=== PATIENT | male | born 1945 | race Caucasian/White ===

== ENCOUNTER 2017-09-14 19:55 | Inpatient (IN) | payer BC, OTHER ==
[~2017-09-14] VITALS: Ht 2956.6 cm; Wt 97.4 kg
[2017-09-14 20:56] LABS: HEMATOCRIT 37.6 % (38.0-50.0); HEMOGLOBIN 12.4 G/DL (12.5-16.6); MCH 30.1 PG (29.0-34.0); MCV 91.3 FL (86-99); PLATELET COUNT 287 K/uL (156-360); RBC DIS.WIDTH-CV 12.9 % (11.8-14.6); RBC DIS.WIDTH-SD 42.8 % (39-53); RED BLOOD COUNT 4.12 M/uL (4.00-5.50); WHITE BLOOD COUNT 8.9 K/uL (4.1-10.2)
[2017-09-14 21:04] LABS: CHLORIDE 105 mEq/L (99-109)
[2017-09-14 21:05] LABS: POTASSIUM 4.8 mEq/L (3.7-5.4); SODIUM 142 mEq/L (136-147)
[2017-09-14 21:06] LABS: GLUCOSE 119 mg/dL (70-99)
[2017-09-14 21:10] LABS: CREATININE 1.6 mg/dL (0.6-1.3); GFR ESTIMATE (CALCULATED) 45 mL/min/ (58.99-99999)
[2017-09-14 21:11] LABS: UREA NITROGEN (BUN) 24 mg/dL (9-23)
[2017-09-14 21:19] LABS: TROP-I INTERPRETATION NEGATIVE; TROPONIN-I < 0.01 ng/mL (0.0-0.30)
[2017-09-14] MEDS ORDERED: ADULT ASPIRIN R81 MG PO (21:24)
[2017-09-14] MEDS ORDERED: METFORMIN HCL1000 MG PO (21:24)
[2017-09-14] MEDS ORDERED: FLOMAX0.4 MG PO (21:24)
[2017-09-14] MEDS ORDERED: ACTOS30 MG PO (21:25)
[2017-09-14] MEDS ORDERED: LISINOPRIL10 MG PO (21:25)
[2017-09-14] MEDS ORDERED: SIMVASTATIN20 MG PO (21:25)
[2017-09-15 12:50] LABS: APPEARANCE CLEAR ((CLEAR)); BILIRUBIN NEGATIVE; BLOOD MODERATE; COLOR YELLOW ((YELLOW)); GLUCOSE (STRIP) NEGATIVE; KETONES NEGATIVE; LEUKOCYTES NEGATIVE; NITRITE NEGATIVE; PROTEIN (STRIP) NEGATIVE; SPECIFIC GRAVITY 1.017 (1.000-1.030); UROBILINOGEN 0.2 MG/DL (0.2-1.0)
[2017-09-15 12:54] LABS: BACTERIA NONE SEEN /HPF; EPITHELIAL CELLS RARE /HPF; HYALINE CASTS 0-5 /LPF; MUCUS TRACE /LPF; RED BLOOD CELLS 30-40 /HPF (0-5); UCUL ADDED? NO; WHITE BLOOD CELLS 0-5 /HPF (0-5)
[2017-09-15 19:50] VITALS: BP 125/60
[2017-09-15 23:27] VITALS: BP 130/60
[2017-09-16] VITALS (7 sets, daily range): BP systolic 123–169; BP diastolic 56–79
[2017-09-16 07:20] LABS: HEMATOCRIT 33.3 % (38.0-50.0); MCH 30.4 PG (29.0-34.0); PLATELET COUNT 273 K/uL (156-360); RBC DIS.WIDTH-CV 12.8 % (11.8-14.6); RBC DIS.WIDTH-SD 42.9 % (39-53); RED BLOOD COUNT 3.62 M/uL (4.00-5.50); WHITE BLOOD COUNT 12.1 K/uL (4.1-10.2)
[2017-09-16 07:37] LABS: CHLORIDE 107 MEQ/L (99-109); CREATININE 1.2 MG/DL (0.6-1.3); GFR ESTIMATE (CALCULATED) > 59 mL/min/ (58.99-99999); GLUCOSE 164 mg/dL (70-99); POTASSIUM 4.6 MEQ/L (3.7-5.4); SODIUM 141 MEQ/L (136-147); UREA NITROGEN (BUN) 28 mg/dL (9-23)
[2017-09-17 07:12] LABS: HEMATOCRIT 33.4 % (38.0-50.0); HEMOGLOBIN 11.1 G/DL (12.5-16.6); MCH 30.2 PG (29.0-34.0); MCHC 33.2 G/DL (30.0-36.0); PLATELET COUNT 278 K/uL (156-360); RBC DIS.WIDTH-CV 12.7 % (11.8-14.6); RBC DIS.WIDTH-SD 42.4 % (39-53); RED BLOOD COUNT 3.67 M/uL (4.00-5.50); WHITE BLOOD COUNT 10.4 K/uL (4.1-10.2)
[2017-09-17 07:38] LABS: CHLORIDE 104 MEQ/L (99-109); GFR ESTIMATE (CALCULATED) > 59 mL/min/ (58.99-99999); GLUCOSE 184 mg/dL (70-99); POTASSIUM 4.5 MEQ/L (3.7-5.4); SODIUM 140 MEQ/L (136-147); UREA NITROGEN (BUN) 29 mg/dL (9-23)
[2017-09-17 08:03] VITALS: BP 119/57
[2017-09-17 15:37] VITALS: BP 127/60
[2017-09-18 00:05] VITALS: BP 137/62
[2017-09-18 07:20] VITALS: BP 116/58
[2017-09-18 16:00] VITALS: BP 137/70
[2017-09-19 15:00] VITALS: BP 144/61
[2017-09-19 19:45] VITALS: BP 142/76
[2017-09-19 23:54] VITALS: BP 127/62
[2017-09-20 04:24] VITALS: BP 126/72
[2017-09-20 08:00] VITALS: BP 141/75
[2017-09-20 12:09] VITALS: BP 136/69
[2017-09-20 16:34] VITALS: BP 142/78
[2017-09-20 20:00] VITALS: BP 135/65
[2017-09-21 15:00] VITALS: BP 122/58
[2017-09-21 18:00] VITALS: BP 124/58
[2017-09-22 00:20] VITALS: BP 111/60
[2017-09-22] MEDS ORDERED: LEVETIRACE100 MG/1 M PO (07:54)
[2017-09-22] MEDS ORDERED: PROTONIX40 MG PO (07:54)
[2017-09-22] MEDS ORDERED: HYOSCYAMINE0.125 M2 PO (07:54)
[2017-09-22] MEDS ORDERED: ATIVAN INTE2 MG/1 ML PO (07:54)
[2017-09-22] MEDS ORDERED: DECADRON4 M1 PO (07:54)
[2017-09-22] MEDS ORDERED: MAG-AL PLUS SUS30 ML PO (07:54)
[2017-09-22] MEDS ORDERED: MORPHINE CON20 MG/M1 PO (07:54)
[2017-09-22 08:23] VITALS: BP 126/58
[2017-09-22 16:05] VITALS: BP 141/68
[2017-09-22 23:38] VITALS: BP 118/68
[2017-09-23 07:32] VITALS: BP 129/68
[2017-09-23 15:10] VITALS: BP 107/55
[2017-09-24 00:48] VITALS: BP 121/60
[2017-09-24 08:39] VITALS: BP 148/67
[2017-09-24 15:30] VITALS: BP 122/61
[2017-09-25 07:16] VITALS: BP 104/59
== END 2017-09-25 14:55 | DRG 25 ==
LOC: EME 19:55 → 5EAST 23:56 → 4WEST 23:56 → EDOF 23:56 → 4EAST 23:56 → ENRESERV 09-15 → EDOF 09-15 03:45 → ENRESERV 09-15 17:34 → 5EAST 09-15 19:10 → ENRESERV 09-18 12:46 → 4WEST 09-18 21:30 → 5EAST 09-18 21:30 → ENRESERV 09-18 21:31 → 4WEST 09-19 12:11 → ENRESERV 09-19 12:33 → CANRESERV 09-19 12:33 → ENRESERV 09-19 12:51 → 4EAST 09-19 14:35 → ENRESERV 09-21 14:32 → 4EAST 09-21 14:32 → ENRESERV 09-21 15:04 → 5EAST 09-21 17:54
PROVIDERS: Emergency Medicine; Hospitalist; Neurological Surgery
PROC: 00B Central Nervous System and Cranial Nerves, Excision (ICD-10-PCS; principal; 2017-09-18)
DX: C71.0 Malignant neoplasm of cerebrum, except lobes and ventricles (principal); G93.6 Cerebral edema; G13.1 Other systemic atrophy primarily affecting central nervous system in neoplastic disease; N17.9 Acute kidney failure, unspecified; R29.6 Repeated falls; I10 Essential (primary) hypertension; E78.5 Hyperlipidemia, unspecified; E11.9 Type 2 diabetes mellitus without complications; N40.1 Benign prostatic hyperplasia with lower urinary tract symptoms; R33.8 Other retention of urine; R31.29 Other microscopic hematuria; R32 Unspecified urinary incontinence; Z66 Do not resuscitate; Z51.5 Encounter for palliative care; E78.00 Pure hypercholesterolemia, unspecified; R45.4 Irritability and anger; K21.9 Gastro-esophageal reflux disease without esophagitis; K59.00 Constipation, unspecified; Z79.84 Long term (current) use of oral hypoglycemic drugs; Z91.81 History of falling; Z80.0 Family history of malignant neoplasm of digestive organs
CPT/HCPCS: 36415; 70450; 71250; 74176; 77021; 80048; 80053; 80061; 81003; 82948; 83036; 84443; 84484; 85025; 85027; 85651; 86141; 88307; 88331; 88342 TC; 94799; 95819; 99281; 99285; C1713; C9113; J0131; J0690; J1100; J1644; J1815; J1953; J2060; J2405; J2710; J3010; J3480; J7030; J7040; J7050; J7070; J7643; J8540; S0020